=== PATIENT | male | born 1945 | race Caucasian/White ===

== ENCOUNTER 2024-04-06 13:38 | Emergency (ER) | payer OTHER, SELFPAY ==
[2024-04-06 13:42] VITALS: BP 163/97
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
[2024-04-06] MEDS: NORCO 5/325 1 TABLET PO (15:37)
[2024-04-06 17:07] VITALS: BP 148/98
== END 2024-04-06 17:19 | disposition home or self-care (01) ==
LOC: EMR 13:38
PROVIDERS: EMERGENCY PHYSICIAN Student in an Organized Health Care Education/Training Program; FAMILY PHYSICIAN Internal Medicine
DX: M51.36 Other intervertebral disc degeneration, lumbar region (principal); S39.012A Strain of muscle, fascia and tendon of lower back, initial encounter; V89.2XXA Person injured in unspecified motor-vehicle accident, traffic, initial encounter; Y92.410 Unspecified street and highway as the place of occurrence of the external cause; I25.10 Atherosclerotic heart disease of native coronary artery without angina pectoris; K21.9 Gastro-esophageal reflux disease without esophagitis
CPT/HCPCS: 99283; 72110